=== PATIENT | male | born 1955 | race Caucasian/White ===

== ENCOUNTER 2018-12-05 11:11 | Observation (INO) | payer MEDICARE, MEDICAID ==
[~2018-12-05] VITALS: Ht 170.2 cm; Wt 61.7 kg
[2018-12-05 11:49] LABS: ALKALINE PHOSPHATASE 82 u/l (38-126); ANION GAP 13 (6-22 (CALC)); BILIRUBIN, TOTAL 0.3 mg/dL (0.0-1.4); BUN 7 mg/dL (8-23); BUN/CREATININE RATIO 7 (12-20 (CALC)); CARBON DIOXIDE 25 mmol/l (22-30); CHLORIDE 103 mmol/l (95-108); CREATININE 1.1 mg/dL (0.7-1.3); GFR > 60 ML/MIN (>=60 (CALC)); GFR FOR AFR.AMER. > 60 ML/MIN (>=60 (CALC)); SGOT/AST 29 u/l (19-48); SODIUM 137 mmol/l (137-146); TOTAL PROTEIN 6.6 g/dL (6.3-8.2)
[2018-12-05 11:56] LABS: HEMATOCRIT 35.2 % (39.0-50.0); HEMOGLOBIN 11.3 g/dl (14.0-18.0); IMMATURE GRANULOCYTES 0.7 % (0.0-5.0); MEAN CELL VOLUME 93.6 fL CALC (80.0-100.0); MEAN CORPUSCULAR HGB 30.1 pG CALC (26.0-32.0); MEAN CORPUSCULAR HGB CONC 32.1 g/L CALC (32.0-36.0); NEUT# 4.31 thou/uL (1.82-7.42); RED BLOOD COUNT 3.76 mill/uL (4.70-6.10); RED CELL DISTRI WIDTH 14.9 % (11.5-15.5)
[2018-12-05] MEDS ORDERED: PROTONIX40 M2 PO (12:02)
[2018-12-05] MEDS ORDERED: OXYBUTYNIN5 MG PO (12:03)
[2018-12-05] MEDS ORDERED: CLONAZEPAM1 MG PO (12:03)
[2018-12-05] MEDS ORDERED: ZIPRASIDONE HCL80 MG PO (12:03)
[2018-12-05] MEDS ORDERED: ESCITALOPRAM OX10 MG PO (12:04)
[2018-12-05] MEDS ORDERED: DICYCLOMINE10 MG PO (12:04)
[2018-12-05] MEDS ORDERED: PERPHENAZINE8 MG PO (12:04)
[2018-12-05] MEDS ORDERED: ONDANSETRON HCL4 MG PO (12:04)
[2018-12-05] MEDS ORDERED: BRILINTA60 MG PO (12:05)
[2018-12-05] MEDS ORDERED: ASPIRIN81 MG PO (12:05)
[2018-12-05] MEDS ORDERED: METOPROLOL SUCC25 MG PO (12:05)
[2018-12-05] MEDS ORDERED: ATORVASTATIN CA80 MG PO (12:06)
[2018-12-05 14:45] VITALS: BP 131/86
[2018-12-05 18:53] VITALS: BP 145/76
[2018-12-05 21:05] VITALS: BP 118/63
[2018-12-05 21:10] VITALS: BP 124/71
[2018-12-05 21:15] VITALS: BP 135/70
[2018-12-05 23:54] VITALS: BP 128/62
[2018-12-06 04:54] VITALS: BP 133/85
[2018-12-06 05:42] LABS: HEMOGLOBIN 11.6 g/dl (14.0-18.0); IMMATURE GRANULOCYTES 0.5 % (0.0-5.0); MEAN CORPUSCULAR HGB CONC 32.2 g/L CALC (32.0-36.0); NEUT# 10.96 thou/uL (1.82-7.42); RED BLOOD COUNT 3.87 mill/uL (4.70-6.10)
[2018-12-06 06:15] LABS: ALBUMIN 3.8 g/dL (3.2-5.0); ALKALINE PHOSPHATASE 90 u/l (38-126); AMYLASE 68 u/l (30-110); ANION GAP 14 (6-22 (CALC)); BILIRUBIN, TOTAL 0.3 mg/dL (0.0-1.4); BUN 9 mg/dL (8-23); BUN/CREATININE RATIO 7 (12-20 (CALC)); CARBON DIOXIDE 25 mmol/l (22-30); CHLORIDE 98 mmol/l (95-108); CREATININE 1.2 mg/dL (0.7-1.3); GFR > 60 ML/MIN (>=60 (CALC)); GFR FOR AFR.AMER. > 60 ML/MIN (>=60 (CALC)); LIPASE 198 u/l (23-300); MAGNESIUM 1.6 mg/dL (1.6-2.3); POTASSIUM 4.6 mmol/l (3.5-5.1); SGOT/AST 21 u/l (19-48); SODIUM 133 mmol/l (137-146); TOTAL PROTEIN 6.3 g/dL (6.3-8.2)
[2018-12-06 08:28] VITALS: BP 157/86
[2018-12-06 11:05] VITALS: BP 127/64
== END 2018-12-06 14:10 | disposition home or self-care (01) ==
LOC: ED 11:11 → ED-I 12:27 → ED 13:38 → MS2 13:39
PROVIDERS: Emergency Medicine; ADMIT Internal Medicine Nephrology; ATTEND Internal Medicine Nephrology
DX: R55 Syncope and collapse (principal); G80.9 Cerebral palsy, unspecified; I10 Essential (primary) hypertension; F20.9 Schizophrenia, unspecified; I25.10 Atherosclerotic heart disease of native coronary artery without angina pectoris; K21.9 Gastro-esophageal reflux disease without esophagitis; R35.0 Frequency of micturition; E78.5 Hyperlipidemia, unspecified; Z95.5 Presence of coronary angioplasty implant and graft